=== PATIENT | female | born 1995 | race American Indian/Alaskan Native ===

== ENCOUNTER 2018-07-14 16:12 | Emergency (ER) | payer MEDICAID ==
--- NOTE | 2018-07-14 16:31 | Emergency Department Report ---
Chief Complaint: Extremity Injury, Lower Stated Complaint: RT LEG CRAMP/2WKS PAIN Time Seen by Provider: 07/14/18 16:26 - HPI History of Present Illness: This is a 22 y.o. female that presents with RLE pain x 2 weeks. Patient reports pain as a burning sensation radiating from right hip to thigh. - Exam Vital Signs: Vital Signs 07/14/18 16:26 Temperature 98.1 F Pulse Rate 129 H Respiratory 18 Rate Blood Pressure 110/59 O2 Sat by Pulse 97 Oximetry MSE screening note: Focused history and physical exam performed. Due to findings the following was ordered: ACC for further evaluation. ED Disposition for MSE Condition: Stable
--- NOTE | 2018-07-14 18:11 | XRay Report ---
PROCEDURE: XR HIP 2-3V RT HISTORY: right hip pain FINDINGS: AP view of the pelvis was acquired as well as AP and lateral views of the right hip. No fracture is seen in the pelvis or right hip. Hip joint space appears preserved bilaterally. IMPRESSION: No fracture is seen in the pelvis or right hip This document is electronically signed by Rene Carson MD., July 14 2018 06:08:52 PM ET
[2018-07-14 20:06] VITALS: BP 120/68
[2018-07-14] MEDS ORDERED: TORADOL IM ONE (20:17)
--- NOTE | 2018-07-14 20:26 | Emergency Department Report ---
ED Lower Extremity HPI - General Chief Complaint: Extremity Injury, Lower Stated Complaint: RT LEG CRAMP/2WKS PAIN Time Seen by Provider: 07/14/18 16:26 Source: patient Mode of arrival: Wheelchair Limitations: No Limitations - History of Present Illness Initial Comments: This is a 22 y.o. female that presents with RLE pain x 2 weeks. Patient reports pain as a burning sensation radiating from right hip to thigh. no numbness no tingling, pt is ambulatory gait is steady. MD Complaint: hip injury Onset/Timin -: days(s) Injury: Hip: Right Type of Injury: hyperextension Place: home Severity: moderate Severity scale (0 -10): 4 Improves With: nothing Worsens With: weight bearing, movement, palpation Other Symptoms: loss of consciousness Associated Symptoms: ambulatory. denies: snap/pop sensation, swelling, numbness, tingling - Related Data Previous Rx's Medication Instructions Recorded Last Taken Type Cyclobenzaprine [Flexeril] 10 mg PO TID PRN #30 tablet 07/14/18 Unknown Rx Menthol/Camphor [[place] 1 applicatio TP QID PRN #1 tube 07/14/18 Unknown Rx Ointment] Naproxen [Naprosyn] 500 mg PO BID PRN #30 tablet 07/14/18 Unknown Rx Allergies Allergy/AdvReac Type Severity Reaction Status Date / Time No Known Allergies Allergy Verified 07/14/18 16:13 ED Review of Systems ROS: Stated complaint: RT LEG CRAMP/2WKS PAIN Other details as noted in HPI Constitutional: denies: chills, fever Eyes: denies: eye pain, eye discharge, vision change ENT: denies: ear pain, throat pain Respiratory: denies: cough, shortness of breath, wheezing Cardiovascular: denies: chest pain, palpitations Endocrine: no symptoms reported Gastrointestinal: denies: abdominal pain, nausea, diarrhea Genitourinary: denies: urgency, dysuria, discharge Musculoskeletal: other (hip pain ). denies: back pain, joint swelling, arthralgia, myalgia Skin: denies: rash, lesions Neurological: denies: headache, weakness, paresthesias Psychiatric: denies: anxiety, depression Hematological/Lymphatic: denies: easy bleeding, easy bruising ED Past Medical Hx - Past Medical History Previous Medical History?: No Hx Hypertension: No Hx Congestive Heart Failure: No Hx Diabetes: No Hx Deep Vein Thrombosis: No Hx Renal Disease: No Hx Sickle Cell Disease: No Hx Seizures: No Hx Asthma: No Hx COPD: No Hx HIV: No Additional medical history: e - Surgical History Past Surgical History?: No - Social History Smoking Status: Current Every Day Smoker Substance Use Type: None - Medications Home Medications: Home Medications Medication Instructions Recorded Confirmed Last Taken Type Cyclobenzaprine [Flexeril] 10 mg PO TID PRN #30 tablet 07/14/18 Unknown Rx Menthol/Camphor [[place] 1 applicatio TP QID PRN #1 tube 07/14/18 Unknown Rx Ointment] Naproxen [Naprosyn] 500 mg PO BID PRN #30 tablet 07/14/18 Unknown Rx ED Physical Exam - General Limitations: No Limitations General appearance: alert, in no apparent distress - Head Head exam: Present: atraumatic, normocephalic - Eye Eye exam: Present: normal appearance, PERRL, EOMI Pupils: Present: normal accommodation - ENT ENT exam: Present: normal orophraynx, mucous membranes moist - Neck Neck exam: Present: normal inspection, tenderness, full ROM. Absent: lymphadenopathy, thyromegaly - Respiratory Respiratory exam: Present: normal lung sounds bilaterally. Absent: respiratory distress, wheezes, stridor, chest wall tenderness - Cardiovascular Cardiovascular Exam: Present: regular rate, normal rhythm, normal heart sounds. Absent: systolic murmur, diastolic murmur, rubs, gallop - GI/Abdominal GI/Abdominal exam: Present: soft, normal bowel sounds. Absent: tenderness, bruit, hernia - Rectal Rectal exam: Present: deferred - Extremities Exam Extremities exam: Present: normal inspection, full ROM, tenderness (mild reproducible pain to right lateral hip no swelling no erythema no ecchymosis rom intact distal pulses intact neg sean's ), normal capillary refill. Absent: pedal edema, joint swelling, calf tenderness - Expanded Lower Extremity Exam Right Hip exam: Present: full ROM, tenderness. Absent: swelling, abrasion, laceration, ecchymosis, deformity, crepidus, dislocation, erythema, external rotation, internal rotation, shortening, pelvic stability Upper Leg exam: Present: normal inspection, full ROM. Absent: tenderness Knee exam: Present: full ROM, tenderness. Absent: swelling Lower Leg exam: Present: normal inspection, full ROM. Absent: tenderness Ankle exam: Present: normal inspection, full ROM. Absent: tenderness Foot/Toe exam: Present: full ROM, tenderness. Absent: swelling Neuro vascular tendon exam: Present: no vascular compromise. Absent: motor deficit, sensory deficit, tendon deficit, pallor, foot drop Gait: Positive: observed and normal - Back Exam Back exam: Present: normal inspection, full ROM. Absent: tenderness, CVA tenderness (R), CVA tenderness (L), muscle spasm, paraspinal tenderness, vertebral tenderness, rash noted - Expanded Back Exam Expanded Back exam: Absent: saddle anesthesia Back exam: Negative Straight Leg Raising: Left, Right - Neurological Exam Neurological exam: Present: alert, oriented X3, CN II-XII intact, normal gait, reflexes normal - Psychiatric Psychiatric exam: Present: normal affect, normal mood - Skin Skin exam: Present: warm, dry, intact, normal color. Absent: rash ED Course Vital Signs 07/14/18 07/14/18 16:26 20:06 Temperature 98.1 F 98.2 F Pulse Rate 129 H 90 Respiratory 18 16 Rate Blood Pressure 110/59 Blood Pressure 120/68 [Right] O2 Sat by Pulse 97 99 Oximetry ED Lower Extremity MDM - Radiology Data Radiology results: report reviewed, image reviewed normal hip xray no fracture in pelvis or hip - Medical Decision Making this is a hip strain xray negative for fracture plan nsaids muscle relaxants, moist heat therapy follow up with pcp in 2-3 days pt given referral [facility] pt verbalized agreement and understanding of discharge plan is is ambulatory with steady gait a this time there is no numbness no tingling no paralysis no loss or decrease in bowel or bladder function. Critical care attestation.: If time is entered above; I have spent that time in minutes in the direct care o f this critically ill patient, excluding procedure time. ED Disposition Clinical Impression: Strain of right hip Qualifiers: Encounter type: initial encounter Qualified Code(s): S76.011A - Strain of muscle, fascia and tendon of right hip, initial encounter Disposition: TO HOME OR SELFCARE Is pt being admited?: No Does the pt Need Aspirin: No Condition: Stable Instructions: Muscle Strain (ED) Prescriptions: Cyclobenzaprine [Flexeril] 10 mg PO TID PRN #30 tablet PRN Reason: Muscle Spasm Naproxen [Naprosyn] 500 mg PO BID PRN #30 tablet PRN Reason: pain Menthol/Camphor [[place] Ointment] 1 applicatio TP QID PRN #1 tube PRN Reason: pain Referrals: ELIESER BARKER MD [Primary Care Provider] - 3-5 Days Forms: Work/School Release Form(ED) Time of Disposition: 20:38
== END 2018-07-14 20:45 | disposition home or self-care (01) ==
LOC: ED 16:12
DX: S76.011A Strain of muscle, fascia and tendon of right hip, initial encounter (principal); F17.200 Nicotine dependence, unspecified, uncomplicated; X58.XXXA Exposure to other specified factors, initial encounter; Y93.89 Activity, other specified; Y92.89 Other specified places as the place of occurrence of the external cause; Y99.8 Other external cause status
CPT/HCPCS: 73502; 96372; 99283; J1885

== ENCOUNTER 2018-12-27 16:20 | Emergency (ER) | payer MEDICAID ==
[2018-12-27 16:38] VITALS: BP 121/63
[2018-12-27] MEDS ORDERED: DELTASONE PO ONE (19:15)
[2018-12-27] MEDS ORDERED: PEPCID PO ONE (19:16)
[2018-12-27] MEDS ORDERED: VISTARIL PO ONE (19:16)
--- NOTE | 2018-12-27 19:16 | Emergency Department Report ---
HPI - General Chief Complaint: Allergic Reaction Time Seen by Provider: 12/27/18 18:59 - HPI HPI: 23 yo with rash, generalized for 2 days. ? etiology. no family with rash. Here with her child who has no rash. no fever or chills. abc intact. no wheezing. hx eczema. ED Past Medical Hx - Past Medical History Previous Medical History?: Yes Hx Hypertension: No Hx Congestive Heart Failure: No Hx Diabetes: No Hx Deep Vein Thrombosis: No Hx Renal Disease: No Hx Sickle Cell Disease: No Hx Seizures: No Hx Asthma: No Hx COPD: No Hx HIV: No Additional medical history: eczema - Surgical History Past Surgical History?: No - Family History Family history: no significant - Social History Smoking Status: Never Smoker Substance Use Type: None - Medications Home Medications: Home Medications Medication Instructions Recorded Confirmed Last Taken Type Cyclobenzaprine [Flexeril] 10 mg PO TID PRN #30 tablet 07/14/18 Unknown Rx Menthol/Camphor [[place] 1 applicatio TP QID PRN #1 tube 07/14/18 Unknown Rx Ointment] Naproxen [Naprosyn] 500 mg PO BID PRN #30 tablet 07/14/18 Unknown Rx Cetirizine HCl [ZyrTEC] 10 mg PO DAILY #30 capsule 12/27/18 Unknown Rx diphenhydrAMINE [Benadryl CAP] 25 mg PO Q8HR PRN #20 capsule 12/27/18 Unknown Rx predniSONE [Deltasone] 20 mg PO DAILY #5 tablet 12/27/18 Unknown Rx ED Review of Systems ROS: Stated complaint: ALLERIC REACTION Other details as noted in HPI Comment: All other systems reviewed and negative Physical Exam - Physical Exam Vital Signs: Vital Signs 12/27/18 16:37 Temperature 98.2 F Pulse Rate 102 H Respiratory 14 Rate Blood Pressure 121/63 [Left] O2 Sat by Pulse 97 Oximetry Physical Exam: generalized macular rash. s1s2 lungs cta abd snt obese ED Course Vital Signs 12/27/18 16:37 Temperature 98.2 F Pulse Rate 102 H Respiratory 14 Rate Blood Pressure 121/63 [Left] O2 Sat by Pulse 97 Oximetry ED Medical Decision Making - Medical Decision Making scabies/bedbugs less likely no one in home with too generalized for eczema medicated for allergic reaction dc home with dc plan of care abc intact vss no cp or sob Vital Signs 12/27/18 16:37 Temperature 98.2 F Pulse Rate 102 H Respiratory 14 Rate Blood Pressure 121/63 [Left] O2 Sat by Pulse 97 Oximetry - Differential Diagnosis allergic rx v eczema v bug infestation Critical care attestation.: If time is entered above; I have spent that time in minutes in the direct care of this critically ill patient, excluding procedure time. ED Disposition Clinical Impression: Rash Disposition: DC-01 TO HOME OR SELFCARE Is pt being admited?: No Does the pt Need Aspirin: No Condition: Stable Instructions: Acute Rash (ED) Additional Instructions: MEDS ORDERED FOLLOW UP WITH DERM Prescriptions: diphenhydrAMINE [Benadryl CAP] 25 mg PO Q8HR PRN #20 capsule PRN Reason: Itching predniSONE [Deltasone] 20 mg PO DAILY #5 tablet Cetirizine HCl [ZyrTEC] 10 mg PO DAILY #30 capsule Referrals: ROBBY CARMEN MD [Referring] - 3-5 Days Time of Disposition: 19:37
== END 2018-12-27 19:45 | disposition home or self-care (01) ==
LOC: ED 16:20
DX: R21 Rash and other nonspecific skin eruption (principal); Z79.899 Other long term (current) drug therapy
CPT/HCPCS: 99282; J7512; Q0177

== ENCOUNTER 2020-08-20 13:06 | Emergency (ER) | payer MEDICAID ==
--- NOTE | 2020-08-20 13:12 | Event Note ---
ED Screening Note ED Screening Note: pt reports ingesting glass shards - she thought it was ice but then found out that a glass shelf had broke and she was eating glass co fb sensation in throat abc intact vss staffed with Dr Hunter xray noted CT noted This initial assessment/diagnostic orders/clinical plan/treatment(s) is/are subject to change based on patients health status, clinical progression and re- assessment by fellow clinical providers in the ED. Further treatment and workup at subsequent clinical providers discretion. Patient/guardian urged not to elope from the ED as their condition may be serious if not clinically assessed and managed. Initial orders include: to main for eval- charge nurse aware
[2020-08-20] MEDS ORDERED: LIDOCAINE VISCOUS 2% 15 ML ORAL LIQD PO ONE (13:17)
--- NOTE | 2020-08-20 13:49 | XRay Report ---
SOFT TISSUE NECK HISTORY: Patient swallowed glass. COMPARISON: None. TECHNIQUE: AP and lateral view(s) of the neck obtained. FINDINGS: Epiglottis: No significant abnormality. Airway: There are some radiopaque densities near the level of the vocal cords. Retropharyngeal soft tissues: No significant abnormality. Bones: No significant abnormality. Additional findings: None. IMPRESSION: 1. Radiopaque densities near the level of the vocal cords that do not have appearance necessarily cor responding to the expected calcification of the laryngeal cartilages. These may indicate tiny foreign bodies. Further evaluation with CT of the neck without contrast would help determine if these are tr ue foreign bodies or normal calcification of the laryngeal cartilage. Signer Name: Adrian Villarreal MD Signed: 08/20/2020 1:43 PM Workstation Name: [id number]
--- NOTE | 2020-08-20 14:27 | Cat Scan Report ---
CT NECK WITHOUT CONTRAST HISTORY: Rule out foreign body, patient thinks she swallowed glass COMPARISON: Soft tissue neck films performed earlier the same day. TECHNIQUE: Routine CT of the neck is performed without the use of intravenous contrast. Sagittal and coronal reformatted images. All CT scans at this location are performed using CT dose reduction for A STANISLAW by means of automated exposure control. CONTRAST: None. FINDINGS: Skull Base: No significant abnormality. Parotid, Carotid, Retropharyngeal, Prevertebral, Pharyngeal Mucosal, and Fire Extinguisher Repairer Spaces: No distin ct abnormal mass. Airway: Patent and without significant abnormality. Lymphatics: No lymphadenopathy. Vasculature: No significant abnormality allowing for lack of intravenous contrast. Osseous Structures: Intact. There is moderate mucosal thickening throughout the visualized ethmoid ai r cells and maxillary sinuses. Additional findings: There are 2 small radiodensities suspicious for foreign bodies. There is a 1 mm radiodensity in the left parapharyngeal soft tissues at the level of the epiglottis on image 141, ser ies 3 which could represent a tiny foreign body. There is also a linear density measuring approximate ly 3 mm adjacent to the right vocal cord posteriorly on image 190, series 3. This larger density appe ars to correlate with the abnormality seen on x-ray. IMPRESSION: 2 possible foreign bodies are identified as described above. Chronic ethmoid and maxillary sinusitis. Signer Name: Leoncio Davis Jr, MD Signed: 08/20/2020 2:23 PM Workstation Name: [id number]
[2020-08-20 15:45] LABS: Hematocrit 32.2 % (30.3-42.9); Hemoglobin 10.5 gm/dl (10.1-14.3); Mean Corpuscular HGB Conc 33 % (30-34); Mean Corpuscular Volume 86 fl (79-97); Platelet Count 290 K/mm3 (140-440); Red Blood Count 3.73 M/mm3 (3.65-5.03); Red Cell Distribution Width 16.4 % (13.2-15.2)
--- NOTE | 2020-08-20 15:58 | Emergency Department Report ---
ED General Adult HPI - General Chief complaint: Sore Throat Stated complaint: GLASS IN THROAT Time Seen by Provider: 08/20/20 13:12 Source: patient Mode of arrival: Ambulatory Limitations: No Limitations - History of Present Illness Initial comments: 24-year-old female presents to ED after accidentally swallowing glass. Patient states she was eating ice from her freezer when she swallowed something sharp. Patient states the glass shelf in the freezer broke last week. Patient states her boyfriend did not clean the glass out of the freezer and believes that glass had fell into the bag of ice. Patient is reporting some pain in her throat in chest. She denies coughing or vomiting any blood. She denies any abdominal pain. -: This afternoon Location: chest Quality: sharp Consistency: constant Improves with: none Worsens with: none Associated Symptoms: denies: nausea/vomiting, shortness of breath Treatments Prior to Arrival: none - Related Data Previous Rx's Medication Instructions Recorded Last Taken Type Cyclobenzaprine [Flexeril] 10 mg PO TID PRN #30 tablet 07/14/18 Unknown Rx Menthol/Camphor [[place] 1 applicatio TP QID PRN #1 tube 07/14/18 Unknown Rx Ointment] Naproxen [Naprosyn] 500 mg PO BID PRN #30 tablet 07/14/18 Unknown Rx Cetirizine HCl [ZyrTEC] 10 mg PO DAILY #30 capsule 12/27/18 Unknown Rx diphenhydrAMINE [Benadryl CAP] 25 mg PO Q8HR PRN #20 capsule 12/27/18 Unknown Rx predniSONE [Deltasone] 20 mg PO DAILY #5 tablet 12/27/18 Unknown Rx Allergies Allergy/AdvReac Type Severity Reaction Status Date / Time Latex, Natural Rubber AdvReac Rash Verified 08/20/20 13:13 ED Review of Systems ROS: Stated complaint: GLASS IN THROAT Other details as noted in HPI Comment: All other systems reviewed and negative ENT: throat pain Respiratory: denies: shortness of breath Cardiovascular: chest pain Gastrointestinal: denies: abdominal pain, nausea, vomiting ED Past Medical Hx - Past Medical History Hx Hypertension: No Hx Congestive Heart Failure: No Hx Diabetes: No Hx Deep Vein Thrombosis: No Hx Renal Disease: No Hx Sickle Cell Disease: No Hx Seizures: No Hx Asthma: No Hx COPD: No Hx HIV: No Additional medical history: eczema - Social History Smoking Status: Current Every Day Smoker Substance Use Type: None - Medications Home Medications: Home Medications Medication Instructions Recorded Confirmed Last Taken Type Cyclobenzaprine [Flexeril] 10 mg PO TID PRN #30 tablet 07/14/18 Unknown Rx Menthol/Camphor [[place] 1 applicatio TP QID PRN #1 tube 07/14/18 Unknown Rx Ointment] Naproxen [Naprosyn] 500 mg PO BID PRN #30 tablet 07/14/18 Unknown Rx Cetirizine HCl [ZyrTEC] 10 mg PO DAILY #30 capsule 12/27/18 Unknown Rx diphenhydrAMINE [Benadryl CAP] 25 mg PO Q8HR PRN #20 capsule 12/27/18 Unknown Rx predniSONE [Deltasone] 20 mg PO DAILY #5 tablet 12/27/18 Unknown Rx ED Physical Exam - General Limitations: No Limitations General appearance: alert, in no apparent distress - Head Head exam: Present: atraumatic, normocephalic - Eye Eye exam: Present: normal appearance, EOMI - ENT ENT exam: Present: mucous membranes moist - Neck Neck exam: Present: normal inspection - Respiratory Respiratory exam: Present: normal lung sounds bilaterally. Absent: respiratory distress - Cardiovascular Cardiovascular Exam: Present: regular rate, normal rhythm - GI/Abdominal GI/Abdominal exam: Present: soft. Absent: distended, tenderness - Extremities Exam Extremities exam: Present: normal inspection - Neurological Exam Neurological exam: Present: alert, oriented X3 - Psychiatric Psychiatric exam: Present: normal affect, normal mood - Skin Skin exam: Present: warm, dry, intact, normal color ED Course Vital Signs 08/20/20 08/20/20 08/20/20 13:11 15:51 16:00 Temperature 98.6 F Pulse Rate 100 H 78 Respiratory 14 17 Rate Blood Pressure 106/63 101/51 O2 Sat by Pulse 100 100 97 Oximetry - Consultations Consultation #1: 08/20/20 16:[address] Webb, on-call for GI. States due to location of foreign body, need to consult ENT. 08/20/20 16:21 Contacted [facility] transfer [facility]. Transfer center nurse contacted [facility] trauma surgeon who advised her to contact the ED physician, Dr Mauricio. Patient accepted and will be transferred to the ER. ED Medical Decision Making - Lab Data Result diagrams: 08/20/20 15:18 08/20/20 15:18 - Radiology Data Radiology results: report reviewed, image reviewed - Medical Decision Making 24-year-old female mistakenly unknowingly ate some broken glass while eating ice chips. Patient reports some sore throat and slight chest pain. CT of the neck showed 1 mm and 3 mm foreign bodies. 3 mm foreign body is adjacent to the right vocal cord. Airway is intact. No ENT here at [facility]. Contacted [facility]. Patient has been accepted by ER physician, Dr. Mauricio. ENT will be contacted upon arrival. Awaiting transport. - Differential Diagnosis Swallowed foreign body Critical care attestation.: If time is entered above; I have spent that time in minutes in the direct care of this critically ill patient, excluding procedure time. ED Disposition Clinical Impression: Swallowed foreign body Disposition: DC/TX-70 ANOTHER TYPE HLTHCARE Is pt being admited?: No Condition: Stable Referrals: PRIMARY CARE, [Primary Care Provider] - 3-5 Days Time of Disposition: 16:37
[2020-08-20 16:11] LABS: Alanine Aminotransferase 13 units/L (7-56); Albumin 4.3 g/dL (3.9-5); Blood Urea Nitrogen 15 mg/dL (7-17); Calcium 8.9 mg/dL (8.4-10.2); Hemolysis Index 3
[2020-08-20 16:15] LABS: BUN/Creatinine Ratio 25
--- NOTE | 2020-08-20 16:34 | XRay Report ---
ABDOMEN 4 VIEW(S) INDICATION / CLINICAL INFORMATION: swallowed glass. COMPARISON: None available. FINDINGS: TUBES / LINES: None. BOWEL GAS PATTERN: Moderate colonic constipation FREE AIR / EXTRALUMINAL GAS: None seen. ADDITIONAL FINDINGS: No radiopaque foreign body within the chest or abdomen. IMPRESSION: 1. No significant abnormality. Signer Name: Ministerio Null MD Signed: 08/20/2020 4:29 PM Workstation Name: [id number]
[2020-08-20 17:01] VITALS: BP 101/51
== END 2020-08-20 17:57 | disposition other institution (70) ==
LOC: ED 13:06
DX: T18.8XXA Foreign body in other parts of alimentary tract, initial encounter (principal); F17.200 Nicotine dependence, unspecified, uncomplicated; Z79.899 Other long term (current) drug therapy; Z91.040 Latex allergy status; Z88.8 Allergy status to other drugs, medicaments and biological substances; X58.XXXA Exposure to other specified factors, initial encounter; Y93.89 Activity, other specified; Y92.89 Other specified places as the place of occurrence of the external cause; Y99.8 Other external cause status
CPT/HCPCS: 36415; 70360; 70490; 74022; 80053; 85027